=== PATIENT | male | born 1975 | race Caucasian/White ===

== ENCOUNTER 2023-10-21 06:51 | Observation (INO) ==
[2023-10-21] MEDS ORDERED: Phenylephrine IV 10 MG/ML 1 ml VIAL ONE (07:07)
[2023-10-21] MEDS ORDERED: Sterile Water for Inj 10 ML ONE (07:07)
[2023-10-21] MEDS ORDERED: Lidocaine 2% PF 5 ML VIAL ONE (07:07)
[2023-10-21] MEDS ORDERED: Propofol 10 MG/ML 20 ML BTL ONE ×3 (07:07→11:01)
[2023-10-21] MEDS ORDERED: Sevoflurane BOTTLE ONE (07:22)
[2023-10-21] MEDS ORDERED: fentaNYL 250 mcg/5 ml 50 MCG/ML 5 ml VIAL (250 MCG) ONE (07:25)
[2023-10-21] MEDS ORDERED: Tranexamic Acid 1 GM/100ML BAG 2,000 MG/200 ML BAG IV ONE (07:25)
[2023-10-21] MEDS ORDERED: Midazolam 2 mg/2 ml VIAL 1 mg/ml 2 ml VIAL (2 mg) ONE (07:25)
[2023-10-21] MEDS ORDERED: Famotidine IV 10 MG/ML 2 ml VIAL (20 mg) ONE (07:26)
[2023-10-21] MEDS ORDERED: ceFAZolin 2 GM PREMIX 2 GM/50 ML BAG ONE (07:26)
[2023-10-21 07:39] LABS: Rapid COVID-19 Molecular Undetected (Undetected)
[2023-10-21] MEDS ORDERED: Bupivacaine 0.25% SDV 30 ML ONE (07:54)
[2023-10-21] MEDS: Famotidine IV 10 MG/ML 2 ml VIAL (20 mg) IV ONE (07:59)
[2023-10-21] MEDS: Lactated Ringers 1000 ml BAG 1,000 ML IV SCH ×2 (08:00→17:15)
[2023-10-21] MEDS ORDERED: Dexamethasone IV 4 MG/ML VIAL 1 ml VIAL ONE (09:21)
[2023-10-21] MEDS ORDERED: Ondansetron 4 mg VIAL 2 MG/ML 2 ml VIAL ONE (09:21)
[2023-10-21] MEDS ORDERED: Naloxone 0.4 mg VIAL 0.4 mg/ml 1 ml VIAL IV PRN (10:10)
[2023-10-21] MEDS ORDERED: HYDROmorphone 1 MG/1 ML SYRINGE IV PRN (10:10)
[2023-10-21] MEDS ORDERED: Lactulose 30 ml UDC PO PRN (11:22)
[2023-10-21] MEDS ORDERED: Ondansetron ODT 4 mg TAB 4 MG TAB PO PRN (11:22)
[2023-10-21] MEDS ORDERED: Magnesium Hydroxide LIQ 30 ML UDC PO PRN (11:22)
[2023-10-21] MEDS ORDERED: Ondansetron 4 mg VIAL 2 MG/ML 2 ml VIAL IV PRN (11:22)
[2023-10-21] MEDS ORDERED: fentaNYL 100 mcg/2 ml 50 MCG/ML VIAL ONE (12:25)
[2023-10-21] MEDS: fentaNYL 100 mcg/2 ml 50 MCG/ML VIAL IV PRN (12:28)
[2023-10-21] MEDS: BUPIVACAINE **LIPOSOME/PF 13.3 MG/ML (266MG/ 20ML) VIAL (RESTRICTED) INFIL ONE (18:16)
[2023-10-21] MEDS: Buffered Lidocaine 1% SYRIN 1 ml INTRADERM ONE (18:17)
[2023-10-21] MEDS: ceFAZolin 1 GM ADVAN 1 GM in NS 0.9% 50 ML 50 ML IVPB SCH (18:24)
[2023-10-21] MEDS: Morphine 2 MG/ML SYRINGE IV PRN (21:02)
[2023-10-21] MEDS: Magnesium Hydroxide LIQ 30 ML UDC PO SCH (21:04)
[2023-10-22] MEDS ORDERED: Naloxone 0.4 mg VIAL 0.4 mg/ml 1 ml VIAL IV PRN (04:29)
[2023-10-22] MEDS: HYDROmorphone 1 MG/1 ML SYRINGE IV PRN (04:41)
[2023-10-22] MEDS: diazePAM INJ CARPUJECT 5 MG/ML SYRINGE IV ONE (05:19)
[2023-10-22 05:47] LABS: Hematocrit 38.5 % (38-53); Hemoglobin 12.9 g/dL (13.2-16.3); Mean Platelet Volume 7.6 fL (7.5-11.2); Platelet Count 221 10^3/uL (150-450)
[2023-10-22 06:06] LABS: Calcium 8.2 mg/dL (8.6-10.3); Creatinine, Serum 0.77 mg/dL (0.67-1.17); Potassium 3.9 mmol/L (3.5-5.0); eGFR CKD-EPI 109.1 (>60)
[2023-10-22] MEDS: Multivitamins/Minerals TAB PO SCH (08:18)
[2023-10-22] MEDS: Thiamine 100 MG/ML 2 ml VIAL (200 mg) IM ONE (08:20)
[2023-10-22] MEDS ORDERED: Vitamin THERAPEUTIC TAB PO SCH (09:00)
[2023-10-22 10:07] VITALS: BP 120/71
== END 2023-10-22 12:20 | disposition home or self-care (01) ==
LOC: SSU 06:51 → OR 06:51
PROVIDERS: ADMIT Orthopaedic Surgery Sports Medicine; ATTEND Orthopaedic Surgery Sports Medicine